=== PATIENT | female | born 1965 | race African-American/Black ===

== ENCOUNTER 2017-02-02 15:59 | Emergency (ER) ==
[2017-02-02 16:08] VITALS: BP 127/86; TEMP 98.3; BMI 26.6
[2017-02-02] MEDS ORDERED: TORADOL IM STA (16:19)
[2017-02-02] MEDS ORDERED: DILAUDID 1 MG/ML SYRINGE IM STA (16:19)
--- NOTE | 2017-02-02 16:22 | ED.PDOC ---
General ED Provider: Dr. KAYLA SPENCER Chief Complaint: Back Pain Stated Complaint: low back pain Time Seen by Physician: 16:00 (low back pain radiating to both legs may wood present at all times ) Mode of Arrival: Walk-In Information Source: Patient, Family Exam Limitations: No limitations Primary Care Provider: JO DEAN Nursing and Triage Documentation Reviewed and Agree: Yes Musculoskeletal Complaint Exam - Back Pain Complaint/Exam Mechanism of Injury: Reports: No known trauma Onset/Duration: 2 days Symptoms Are: Still present Timing: Intermittent Episodes Lasting: Days Initial Severity: Moderate Current Severity: Moderate Character: Reports: Aching, Throbbing, Spasmodic Aggravating: Reports: Movements, Lifting, Bending, Walking Alleviating: Reports: Rest, Position Associated Signs and Symptoms: Reports: Flank pain (righ /left). Denies: Swelling, Redness, Bruising, Fever, Weakness, Numbness, Tingling, Abdominal pain , Bladder incontinence, Bowel incontinence, Weight loss, Pain with weight bearing Related History: Reports: Similar episode TAD Risk Factors: Reports: None AAA Risk Factors: Reports: None Cauda Equina Risk Factors: Reports: None Related Surgical History: Reports: None Focal Tenderness: No Paraspinal Muscle Tenderness: No Paraspinal Muscle Spasm: Yes Scoliosis: No Lordosis: No Kyphosis: No SLR Test: Right Negative, Left Negative Hip Motion Testing Pain: Right Negative, Left Negative Focal Weakness: Present: None Focal Sensory Loss: Present: None Gait: Present: Normal Differential Diagnoses: Strain, Sprain Review of Systems - Review Of Systems Constitutional: Reports: No symptoms Eyes: Reports: No symptoms Ears, Nose, Mouth, Throat: Reports: No symptoms Respiratory: Reports: No symptoms Cardiac: Reports: No symptoms GI: Reports: No symptoms : Reports: No symptoms Musculoskeletal: Reports: Back pain Skin: Reports: No symptoms Neurological: Reports: No symptoms Endocrine: Reports: No symptoms Hematologic/Lymphatic: Reports: No symptoms All Other Systems: Reviewed and Negative Past Medical History - Past Medical History Previously Healthy: Yes Endocrine: Reports: None Cardiovascular: Reports: None Respiratory: Reports: None Hematological: Reports: None Gastrointestinal: Reports: None Genitourinary: Reports: None Neuro/Psych: Reports: None Musculoskeletal: Reports: None Cancer: Reports: None Last Menstrual Period: hysterectomy - Surgical History General Surgical History: Reports: Hysterectomy, , Cholecystectomy - Family History Family History: Reports: Unknown - Social History Smoking Status: Current every day smoker, Heavy tobacco smoker Hx Substance Use: No Alcohol Screening: None Physical Exam - Physical Exam Appearance: Well-appearing, No pain distress, Well-nourished Eyes: MYRNA, EOMI, Conjunctiva clear ENT: Ears normal, Nose normal, Oropharynx normal Respiratory: Airway patent, Breath sounds clear, Breath sounds equal, Respirations nonlabored Cardiovascular: RRR, Pulses normal, No rub, No murmur GI/: Soft, Nontender, No masses, Bowel sounds normal, No Organomegaly Musculoskeletal: Normal strength, ROM intact, No edema, No calf tenderness Skin: Warm, Dry, Normal color Neurological: Sensation intact, Motor intact, Reflexes intact, Cranial nerves intact, Alert, Oriented Psychiatric: Affect appropriate, Mood appropriate Critical Care Note - Critical Care Note Total Time (mins): 0 Course - Course Orders, Labs, Meds: Orders Category Date Time Status Hydromorphone HCl [Dilaudid 1 mg/ml Syringe] MEDS 02/02/17 16:19 Stat 0.5 mg IM ONCE STA Ketorolac Tromethamine [Toradol] MEDS 02/02/17 16:19 Stat 60 mg IM ONCE STA Medications Generic Name Dose Route Start Last Admin Trade Name Freq PRN Reason Stop Dose Admin Hydromorphone HCl 0.5 mg 02/02/17 16:19 Dilaudid 1 Mg/Ml Syringe IM 02/02/17 16:20 ONCE STA Ketorolac Tromethamine 60 mg 02/02/17 16:19 Toradol IM 02/02/17 16:20 ONCE STA Vital Signs: Temp Pulse Resp BP Pulse Ox 02/02/17 15:59 98.3 F 99 H 20 127/86 95 Departure - Departure Time of Disposition: 05:10 Disposition: HOME SELF-CARE Discharge Problem: Low back pain Qualifiers: Chronicity: unspecified Back pain laterality: unspecified Instructions: Acute Low Back Pain (ED) Condition: Good Pt referred to PMD for follow-up: No Additional Instructions: Please call your Family Physician as soon as possible to schedule a follow-up appointment. Allergies/Adverse Reactions: Allergies No Known Allergies Allergy (Verified 02/02/17 16:07) Home Medications: Ambulatory Orders Aspirin [Aspirin EC] 81 mg PO DAILYWM PRN 12/22/15 Metoprolol Tartrate [Lopressor] 25 mg PO DAILY 05/23/16
[2017-02-02 16:39] LABS: BILIRUBIN,URINE Negative (NEGATIVE); KETONES,URINE Negative (NEGATIVE); LEUKOCYTE ESTERASE ,URINE Negative (NEGATIVE); NITRITE,URINE Negative (NEGATIVE); PH,URINE 6.5 (5-9); PROTEIN,URINE Trace (NEGATIVE); URINE, BLOOD Trace-intact (NEGATIVE)
[2017-02-02 16:40] LABS: ADD URINE MICROSCOPIC YES
== END 2017-02-02 17:15 | disposition home or self-care (01) ==
LOC: ED 15:59
DX: M54.5 Low back pain (principal); F17.210 Nicotine dependence, cigarettes, uncomplicated
CPT/HCPCS: 81001; 96372; 99283

== ENCOUNTER 2018-05-09 12:34 | Emergency (ER) ==
[2018-05-09 12:41] VITALS: BP 130/84; TEMP 97.9; BMI 31.3
[2018-05-09] MEDS ORDERED: ZOFRAN 4 MG/2 ML IM STA (13:31)
[2018-05-09] MEDS ORDERED: MORPHINE 4 MG/ML SYRINGE IM STA (13:31)
--- NOTE | 2018-05-09 14:10 | CT ---
EXAM: CT abdomen pelvis without contrast HISTORY: Lower abdominal pain COMPARISON: CT 08/04/2015 TECHNIQUE: Serial axial images of the abdomen pelvis were performed from the lung bases through the inferior pelvis without contrast. Axial scans acquired at 3 mm slice thicknesses. MPR coronal and s agittal sequence completed FINDINGS: Abdomen. Images of the lower thorax show no pulmonary infiltrate. There is no intrperitoneal free air. The l iver, spleen, pancreas, adrenal glands are unremarkable. There is no renal calculus. No obstruction of either kidney or ureter is seen. There are changes of previous cholecystectomy. No biliary ducta l dilatation is seen. Aorta normal caliber. No abdominal adenopathy within limitations of a noncontr ast CT. There is no ascites. There is no small bowel obstruction or bowel wall thickening. The appe ndix is normal. There is no inflammation large bowel Pelvis. Previous hysterectomy. Bladder nondistended. There are multiple central and right adnexal cysts larg est complex cyst posteriorly slightly right of midline measures 3.5 x 2.8 x 3.5 cm with additional ce ntral pelvic cyst as large as 3.0 x 2.3 x 3.3 cm. There is no free fluid in the pelvis. No hernia. Skeletal structures. Bones are free of osteolytic or blastic lesions. Minimal degenerate disc disea se L4-L5 level. IMPRESSION: 1. No bowel or urinary obstruction. Appendix appears normal. 2. Solid organs to include liver, spleen, and pancreas show no acute findings. 3. Previous cholecystectomy. No biliary duct dilatation. 4. Prior hysterectomy. Multiple pelvic cysts. Cyst are seen measuring 3.5 x 2.8 x 3.5 cm and 3.0 x 2.3 x 3.3 cm. Consider follow-up pelvic ultrasound to further assess.
--- NOTE | 2018-05-09 14:26 | ED.PDOC ---
General ED Provider: Dr. KAYLA SPENCER Chief Complaint: Abdominal Pain Stated Complaint: lower abdominal pain Time Seen by Physician: 12:40 (joselito was present at all times ) Mode of Arrival: Walk-In Information Source: Patient Exam Limitations: No limitations Primary Care Provider: JO DEAN Nursing and Triage Documentation Reviewed and Agree: Yes Does patient meet sepsis criteria?: No System Inflammatory Response Syndrome: Not Applicable Sepsis Protocol: For patient's 13 years and over: Temp is 96.8 and below OR 101 and greater Pulse >90 BPM Resp >20/minute Acutely Altered Mental Status Are patient's symptoms suggestive of a new infection, such as: -Pneumonia -Skin, Soft Tissue -Endocarditis -UTI -Bone, Joint Infection -Implantable Device -Acute Abdominal Infection -Wound Infection -Meningitis -Blood Stream Catheter Infection -Unknown GI Complaint Exam - Abdominal Pain Complaint/Exam Onset: Gradual Duration: 1 day Symptoms Are: Still present Timing: Constant Initial Severity: Mild Current Severity: Mild Location of Pain: RLQ, LLQ Radiates To: Denies: Chest, Back, Flank, LLQ, RLQ, Inguinal Character: Reports: Dull Aggravating: Reports: None Alleviating: Reports: None Associated Signs and Symptoms: Denies: Diaphoresis, Fever, Cough, Chest pain, Dizziness, Back pain, Constipation, Blood in stool, Dysuria, Urinary frequency, Decreased urine output, Decreased appetite, Vaginal bleeding, Vaginal discharge , Nausea, Vomiting, Diarrhea, Sore throat, Decreased activity Related History: Reports: Similar episode AAA Risk Factors: Reports: None Cardiac Risk Factors: Reports: None Ectopic Risk Factors: Reports: None Ovarian Torsion Risk Factors: Reports: None Surgical Obstruction Risk Factors: Reports: None Related Surgical History: Reports: None Patient Rh Status: Unknown Review of Systems - Review Of Systems Constitutional: Reports: No symptoms Eyes: Reports: No symptoms Ears, Nose, Mouth, Throat: Reports: No symptoms Respiratory: Reports: No symptoms Cardiac: Reports: No symptoms GI: Reports: Abdominal pain : Reports: No symptoms Musculoskeletal: Reports: No symptoms Skin: Reports: No symptoms Neurological: Reports: No symptoms Endocrine: Reports: No symptoms Hematologic/Lymphatic: Reports: No symptoms All Other Systems: Reviewed and Negative Past Medical History - Past Medical History Previously Healthy: Yes Endocrine: Reports: None Cardiovascular: Reports: None Respiratory: Reports: None Hematological: Reports: None Gastrointestinal: Reports: None Genitourinary: Reports: None Neuro/Psych: Reports: None Musculoskeletal: Reports: None Cancer: Reports: None Last Menstrual Period: PARTIAL HYSTERECTOMY - Surgical History General Surgical History: Reports: Hysterectomy, , Cholecystectomy - Family History Family History: Reports: Unknown - Social History Smoking Status: Current every day smoker, Heavy tobacco smoker Hx Substance Use: No Alcohol Screening: None - Immunizations Tetanus Shot up to Date: No Physical Exam - Physical Exam Appearance: Well-appearing, No pain distress, Well-nourished Eyes: MYRNA, EOMI, Conjunctiva clear ENT: Ears normal, Nose normal, Oropharynx normal Respiratory: Airway patent, Breath sounds clear, Breath sounds equal, Respirations nonlabored Cardiovascular: RRR, Pulses normal, No rub, No murmur GI/: Soft, Nontender, No masses, Bowel sounds normal, No Organomegaly Musculoskeletal: Normal strength, ROM intact, No edema, No calf tenderness Skin: Warm, Dry, Normal color Neurological: Sensation intact, Motor intact, Reflexes intact, Cranial nerves intact, Alert, Oriented Psychiatric: Affect appropriate, Mood appropriate Interpretation - Radiology Interpretation Radiology Interpretation By: Radiologist Radiology Results: No acute changes Critical Care Note - Critical Care Note Total Time (mins): 0 Course - Course Hematology/Chemistry: 05/09/18 13:43 Orders, Labs, Meds: Lab Review 05/09/18 05/09/18 13:43 13:43 WBC 11.71 H RBC 4.21 Hgb 13.3 Hct 39.1 MCV 92.9 MCH 31.6 H MCHC 34.0 RDW Coeff of Azeem 13.1 Plt Count 300 Immature Gran % (Auto) 0.3 Neut % (Auto) 73.4 Lymph % (Auto) 19.6 [place] % (Auto) 5.8 Eos % (Auto) 0.7 Baso % (Auto) 0.2 Immature Gran # (Auto) 0.0 Neut # (Auto) 8.6 H Lymph # (Auto) 2.3 [place] # (Auto) 0.7 Eos # (Auto) 0.1 Baso # (Auto) 0.0 Urine Color Yellow Urine Clarity Slightly Urine pH 5.5 Ur Specific [place] 1.025 Urine Protein Negative Urine Glucose (UA) Negative Urine Ketones Negative Urine Blood 1+ Urine Nitrite Negative Urine Bilirubin Negative Urine Urobilinogen 0.2 Ur Leukocyte Esterase 3+ Urine Microscopic RBC 5-10 Urine Microscopic WBC 30-50 Ur Squamous Epith Cells 2-5 Urine Bacteria 1+ Orders Category Date Time Status AMYLASE Stat LAB 05/09/18 13:30 Ordered CBC W/ AUTO DIFF Stat LAB 05/09/18 13:30 Ordered COMPREHENSIVE METABOLIC PANEL Stat LAB 05/09/18 13:30 Ordered LIPASE Stat LAB 05/09/18 13:30 Ordered URINALYSIS C & S IF INDICATED Stat LAB 05/09/18 13:30 Uncollected URINE CULTURE Stat LAB 05/09/18 13:43 Received Morphine Sulfate [Morphine 4 mg/ml Syringe] MEDS 05/09/18 13:31 Stat 4 mg IM ONCE STA Ondansetron HCl/Pf [Zofran 4 mg/2 ml] MEDS 05/09/18 13:31 Stat 4 mg IM ONCE STA CT ABDOMEN/PELVIS WO CONTRAST Stat RADS 05/09/18 13:30 Ordered Medications Discontinued Medications Generic Name Dose Route Start Last Admin Trade Name Freq PRN Reason Stop Dose Admin Morphine Sulfate 4 mg 05/09/18 13:31 05/09/18 13:43 Morphine 4 Mg/Ml Syringe IM 05/09/18 13:32 4 mg ONCE STA Administration Ondansetron HCl 4 mg 05/09/18 13:31 05/09/18 13:43 Zofran 4 Mg/2 Ml IM 05/09/18 13:32 4 mg ONCE STA Administration Vital Signs: Temp Pulse Resp BP Pulse Ox 05/09/18 12:37 97.9 F 93 H 16 130/84 98 Departure - Departure Time of Disposition: 14:25 Disposition: HOME SELF-CARE Discharge Problem: Abdominal pain Ovarian cyst Qualifiers: Laterality: unspecified laterality Qualified Code(s): N83.209 - Unspecified ovarian cyst, unspecified side Instructions: Ovarian Cyst (ED) Condition: Good Pt referred to PMD for follow-up: Yes IPMP verified?: No Additional Instructions: Please call your Family Physician as soon as possible to schedule a follow-up appointment. Allergies/Adverse Reactions: Allergies No Known Allergies Allergy (Verified 05/09/18 12:41) Home Medications: Ambulatory Orders Aspirin [Aspirin EC] 81 mg PO DAILYWM PRN 12/22/15 Metoprolol Tartrate [Lopressor] 25 mg PO DAILY 05/23/16
[2018-05-09] MEDS ORDERED: ROCEPHIN IM STA (14:27)
[2018-05-09] MEDS ORDERED: LIDOCAINE HCL 1% SDV IM STA (14:27)
== END 2018-05-09 15:15 | disposition home or self-care (01) ==
LOC: ED 12:34
DX: N83.209 Unspecified ovarian cyst, unspecified side (principal); N39.0 Urinary tract infection, site not specified; R10.30 Lower abdominal pain, unspecified; F17.210 Nicotine dependence, cigarettes, uncomplicated
CPT/HCPCS: 36415; 80053; 81001; 82150; 83690; 85025; 87086; 96372; 99284

== ENCOUNTER 2024-11-18 12:45 | Observation (INO) ==
--- NOTE | 2024-11-18 13:26 | ED.PDOC ---
General ED Provider: Dr. IMELDA LONDON MD Chief Complaint: Bite Stated Complaint: 59 yo BF breaking up a dog fight when her pitbull got out of his pen. Was fighting for 30 minutes and she was bitten on the L hand. 3 superficial wound with the worse one on the base of L thumb. No numbness. She also broke part of her nail on the R middle finger during the process. Thinks her tetanus was 7 years ago. Was concerned about MRSA as she almost from it. Was seen about 2 weeks ago for some other complaints and had elevated BP in the ER after initial BP was a little low. Seen in 2020 and placed on Metoprolol then. Said she didn't have any HTN till this last ER visit BP been variable and occ 120/80. Still with some numbness of the abdomen and lower extremity weakness, started about 3 weeks ago. No incontinence Time Seen by Provider: 11/18/24 12:59 Mode of Arrival: Walk-In Information Source: Patient Exam Limitations: No limitations Referred to ED by: Other (self) Nursing and Triage Documentation Reviewed and Agree: Yes Does Patient Take Opioids?: No What is Opioid Naive?: *Opioid Naive implies the patient is not already taking opioids or not chronically receiving opioids on a daily basis. *PRN dosing is not "usually" associated with tolerance. *Patients are at higher risk of over-sedation and aspiration. What is Opioid Tolerant?: *Opioid Tolerance implies less than the expected response to an opioid. *Acquired tolerance is defined by the patient taking 60mg of oral morphine daily (or equianalgesic dose of another opioid) for 1 week or more. *Often associated with chronic pain. *May take more than usual dose to achieve desired pain control. Review of Systems Review Of Systems Constitutional: Reports No symptoms Eyes: Reports No symptoms Ears, Nose, Mouth, Throat: Reports No symptoms Respiratory: Reports No symptoms Cardiac: Reports No symptoms GI: Reports No symptoms Musculoskeletal: Denies Back pain Skin: Reports Other (minor bite wounds L hand) Neurological: Reports No symptoms PFSH Social History Smoking and tobacco status: Current every day smoker Female Reproductive History Menstrual Hx Hysterectomy: No Hx Tubal Ligation: No Physical Exam Physical Exam Appearance: Reports Well-appearing and Well-nourished Pain Distress: Mild Eyes: Reports EOMI Respiratory: Reports Airway patent and Respirations nonlabored Cardiovascular: Reports Pulses normal Musculoskeletal: Reports Other (L hand with 3 superficial wound, all 1/2 cm or less with the wound at base of L thumb thru the skin. Normal thumb extension. Normal sensation. Smaller wound on the velasco aspect barely broke the epidermis. L middle finger with avulsed distal nail plate with most of the nail intact. ) Skin: Reports Warm, Dry and Normal color Neurological: Reports Sensation intact and Motor intact Psychiatric: Reports Affect appropriate and Mood appropriate Course Course 11/18/24 13:46 Orders, Labs, Meds: Lab Review 11/18/24 11/18/24 13:46 17:44 WBC 10.32 H RBC 4.45 Hgb 13.7 Hct 42.8 MCV 96.2 MCH 30.8 MCHC 32.0 RDW Coeff of Azeem 13.1 Plt Count 319 Immature Gran % (Auto) 0.3 Neut % (Auto) 60.4 Lymph % (Auto) 31.0 [place] % (Auto) 6.4 Eos % (Auto) 1.5 Baso % (Auto) 0.4 Neut # (Auto) 6.2 Lymph # (Auto) 3.2 [place] # (Auto) 0.7 Eos # (Auto) 0.2 Baso # (Auto) 0.0 Immature Gran # (Auto) 0.0 ESR 13 Total Creatine Kinase 803.6 H 1160.4 H CK-MB (CK-2) 2.700 H Pending CK-MB (CK-2) % 0.3300 Pending Orders Category Date Time Status Saline Lock [ED IV/MEDIPORT/POWERPORT] .ONCE EMERGENCY 11/18/24 14:59 Active Wound care [ED WOUND CARE] .ONCE EMERGENCY 11/18/24 13:18 Active CBC W/ AUTO DIFF Stat LAB 11/18/24 13:46 Completed CPK [CREATINE KINASE] Stat LAB 11/18/24 13:46 Completed CPK [CREATINE KINASE] Stat LAB 11/18/24 17:44 Results ESR Stat LAB 11/18/24 13:46 Completed 0.9 % Sodium Chloride [Saline Flush] Meds 11/18/24 14:59 Active 1 syr IVF PRN PRN Amoxicillin/Potassium Clav [Augmentin 875-125 mg Tab] Meds 11/18/24 13:18 Discontinued 1 tab PO ONCE ONE Diphth,Pertuss(Acell),Tet Vac [Boostrix] Meds 11/18/24 13:18 Discontinued 0.5 ml IM .ONCE ONE Hydralazine HCl Meds 11/18/24 14:59 Discontinued 10 mg IVP ONCE ONE Morphine Sulfate [Morphine 4 mg/ml Syringe] Meds 11/18/24 15:06 Discontinued 4 mg IVP ONCE ONE Sodium Chloride 0.9% [Sodium Chloride] 500 ml Meds 11/18/24 14:59 Discontinued IV 250 mls/hr CT LUMBAR SPINE W/O CONTRAST Stat RADS 11/18/24 13:[address] THORACIC SPINE W/O CONTRAST Stat RADS 11/18/24 13:34 Completed Medications Generic Name Dose Route Start Last Admin Trade Name Freq PRN Reason Stop Dose Admin Sodium Chloride 1 syr 11/18/24 14:59 0.9% Sodium Chloride 10 Ml Disp.Syrin IVF PRN PRN To flush IV Discontinued Medications Generic Name Dose Route Start Last Admin Trade Name Freq PRN Reason Stop Dose Admin Amoxicillin/Clavulanate Potassium 1 tab 11/18/24 13:18 11/18/24 13:37 Amoxicillin/Potassium Clav 875/125 Mg Tablet PO 11/18/24 13:19 1 tab ONCE ONE Administration Diphtheria/Pertussis/Tetanus Vacc 0.5 ml 11/18/24 13:18 11/18/24 13:38 Diphth,Pertuss(Acell),Tet Vac 0.5 Ml Disp.Syrin IM 11/18/24 13:19 0.5 ml .ONCE ONE Administration Hydralazine HCl 10 mg 11/18/24 14:59 11/18/24 15:35 Hydralazine Hcl 20 Mg/Ml Sdv IVP 11/18/24 15:00 10 mg ONCE ONE Administration Sodium Chloride 500 mls @ 250 mls/hr 11/18/24 14:59 11/18/24 17:47 Sodium Chloride IV 11/18/24 16:58 Infused .Q2H ONE Infusion Morphine Sulfate 4 mg 11/18/24 15:06 11/18/24 15:35 Morphine Sulfate 4 Mg/Ml Syringe IVP 11/18/24 15:07 4 mg ONCE ONE Administration Vital Signs: Temp Pulse Resp BP Pulse Ox 11/18/24 14:21 193/119 H 11/18/24 12:56 97.3 F L 94 18 204/128 H 98 Discharge Plan Discharge Patient Disposition: PLACED OBSERVATION Discharge Problem: Dog bite, Spinal stenosis of lumbar region at multiple levels, Elevated CPK Prescriptions: No Action metoprolol succinate 50 mg capsule,sprinkle,ER 24hr 50 mg PO DAILY Estroven 155 mg capsule 1 cap PO DAILY Did you review [place] [employer]ATOR for ALL controlled substances?: Not Applicable ED Provider: IMELDA LONDON Condition: Fair Physician Progress Note: CPK noted and started IV fluid at 250cc/hr. repeat CPK has increased to 1160. Discussed with patient and hospitalist about overnight admission for hydration
[2024-11-18] MEDS: AUGMENTIN 875-125 MG TAB PO ONE (13:37)
[2024-11-18] MEDS: BOOSTRIX IM ONE (13:38)
[2024-11-18 13:51] LABS: BASOPHILS % (AUTO) 0.4 % (0.0-3.0); EOSINOPHILS # (AUTO) 0.2 K/ul (0.0-0.7); EOSINOPHILS % (AUTO) 1.5 % (0.0-7.0); HEMATOCRIT 42.8 % (37.0-47.0); HEMOGLOBIN 13.7 g/dl (12.0-16.0); IMMATURE GRANULOCYTE % (AUTO) 0.3 % (0.0-5.0); LYMPHOCYTES # (AUTO) 3.2 K/uL (0.60-3.4); MEAN CORPUSCULAR HEMOGLOBIN 30.8 pg (27.0-31.0); MEAN CORPUSCULAR VOLUME 96.2 fl (81.0-99.0); MONOCYTES # (AUTO) 0.7 K/uL (0.4-2.0); MONOCYTES % (AUTO) 6.4 (0-10); NEUTROPHILS # (AUTO) 6.2 K/ul (2.0-6.9); NEUTROPHILS % (AUTO) 60.4 % (42.2-75.2); PLATELET COUNT 319 10^3/uL (140-440); RDW COEFFICIENT OF VARIATION 13.1 % (11.6-14.8); RED BLOOD COUNT 4.45 10^6/ul (4.20-5.40); WHITE BLOOD COUNT 10.32 K/ul (4.6-10.2)
[2024-11-18 14:16] LABS: CREATINE KINASE 803.6 U/L (30-135)
[2024-11-18 14:32] LABS: CREATINE KINASE MB 2.7 ng/ml (0.0-2.38)
--- NOTE | 2024-11-18 14:33 | CT ---
EXAMINATION: CT THORACIC SPINE WITHOUT CONTRAST HISTORY: Back pain. TECHNIQUE: CT of the thoracic spine was performed according to standard protocol without intravenous contrast. Sagittal and coronal reformatted images were obtained using the data from the axial images. Contrast Dose: None. CT Dose Reduction Techniques Performed: Yes. COMPARISON: None. FINDINGS: Segmentation: 12 rib-bearing thoracic vertebral bodies. Alignment: Anatomic. Bones: No fracture. No lytic or blastic lesion. Disc Spaces: Normal heights. Soft Tissues: Within normal limits. Limited chest and abdomen: The visualized portions of the lungs are clear. The thoracic aorta is not dilated. The visualized portions of the adrenals and kidneys are normal. Degenerative changes: No significant facet arthropathy. There is mild degenerative disc disease in th e mid thoracic spine with lateral osteophyte formation. No significant spinal canal stenosis. IMPRESSION: 1. No fracture or subluxation All CT scans are performed using dose optimization techniques as appropriate to the performed exam an d include at least one of the following: Automated exposure control, adjustment of the mA and/or kV according t o size, and the use of iterative reconstruction technique.
--- NOTE | 2024-11-18 14:35 | CT ---
EXAMINATION: CT LUMBAR SPINE WITHOUT CONTRAST HISTORY: Lower extremity weakness. TECHNIQUE: Computed tomography (CT) of the lumbar spine was performed according to standard protocol without intravenous contrast. Contrast Dose: None. CT Dose Reduction Techniques Performed: Yes. COMPARISON: None. FINDINGS: There are 5 non-rib bearing lumbar type vertebrae, with partial sacralization of L5 on the left. The coronal images show mild scoliosis, convex to the left. [id number] degenerative changes of both sacroiliac joints. The sagittal images show normal curvature. Mild retrolisthesis of T12 on L1. Vertebral body heights are normal. Moderate disc height loss with vacuum phenomena and mild degenerat jensen endplate sclerosis at L4-5. Mild multilevel osteophytosis. [id number] multilevel bilateral facet arthropathy. No fractures or dislocations are identified. 2.2 cm cyst L1-2: Mild bilateral facet arthropathy. No spinal canal stenosis or neuroforaminal narrowing. L2-3: Mild bilateral facet arthropathy. No spinal canal stenosis or neuroforaminal narrowing. L3-4: Mild disc protrusion and mild bilateral facet arthropathy. Mild spinal canal stenosis. Mild rig ht neuroforaminal narrowing. L4-5: Disc bulge with central disc protrusion and mild bilateral facet arthropathy. Moderate to sever e spinal canal stenosis. Moderate bilateral neuroforaminal narrowing. L5-S1: Left posterolateral bony spurring, and bilateral facet arthropathy, moderate on the left and m ild on the right. No spinal canal stenosis. Mild left neuroforaminal narrowing. IMPRESSION: 1. Mild scoliosis, convex to the left. 2. Mild retrolisthesis of T12 on L1. 3. Multilevel degenerative changes as described. 4. At L3-4, mild spinal canal stenosis and mild right neural foraminal narrowing. 5. At L4-5, [id number] spinal canal stenosis, and moderate bilateral neural foraminal narrowi ng. 6. At L5-S1, mild left neuroforaminal narrowing. All CT scans are performed using dose optimization techniques as appropriate to the performed exam an d include at least one of the following: Automated exposure control, adjustment of the mA and/or kV according t o size, and the use of iterative reconstruction technique.
[2024-11-18 14:50] LABS: ERYTHROCYTE SEDIMENTATION RATE 13 mm/hr (0-20)
[2024-11-18] MEDS: SODIUM CHLORIDE 500 ML IV ONE (15:32)
[2024-11-18] MEDS: HYDRALAZINE HCL IVP ONE (15:35)
[2024-11-18] MEDS: MORPHINE 4 MG/ML SYRINGE IVP ONE (15:35)
[2024-11-18 18:41] LABS: CREATINE KINASE 1160.4 U/L (30-135)
[2024-11-18 18:56] LABS: CREATINE KINASE MB 2.99 ng/ml (0.0-2.38)
[2024-11-18 19:59] LABS: SARS COV-2 RNA RAPID NAAT NEGATIVE (NEGATIVE)
[2024-11-18] MEDS: SODIUM CHLORIDE 1,000 ML IV SCH (20:38)
[2024-11-18] MEDS: AUGMENTIN 875-125 MG TAB PO SCH (21:33)
[2024-11-18] MEDS: NORCO 7.5-325 PO PRN (21:35)
[2024-11-18] MEDS: NORVASC PO SCH (22:51)
[2024-11-18 22:56] VITALS: BMI 37.7
[2024-11-19] MEDS: MELATONIN PO PRN (01:02)
[2024-11-19 06:14] LABS: ALANINE AMINOTRANSFERASE 19.7 U/L (0-35); ALBUMIN 3.54 g/dL (3.5-5.0); ALKALINE PHOSPHATASE 96.2 U/L (38-126); ASPARTATE AMINO TRANSFERASE 49.8 U/L (14-36); BILIRUBIN,TOTAL 0.75 mg/dL (0.2-1.3); BLOOD UREA NITROGEN 9.7 mg/dL (7-17); CALCIUM 8.79 mg/dL (8.4-10.2); CARBON DIOXIDE 25.7 mmol/L (22-30.0); CHLORIDE 107.3 mmol/L (98-107); CREATINE KINASE 1547.6 U/L (30-135); CREATININE 0.8 mg/dL (0.60-1.30); POTASSIUM 3.77 mmol/L (3.5-5.1); TOTAL PROTEIN 6.37 g/dL (6.3-8.2)
[2024-11-19 06:18] LABS: BASOPHILS % (AUTO) 0.2 % (0.0-3.0); EOSINOPHILS # (AUTO) 0.2 K/ul (0.0-0.7); EOSINOPHILS % (AUTO) 1.7 % (0.0-7.0); HEMOGLOBIN 11.9 g/dl (12.0-16.0); IMMATURE GRANULOCYTE % (AUTO) 0.1 % (0.0-5.0); LYMPHOCYTES # (AUTO) 3.6 K/uL (0.60-3.4); LYMPHOCYTES % (AUTO) 37.9 (10.0-50.0); MEAN CORPUSCULAR HEMOGLOBIN 30.8 pg (27.0-31.0); MEAN CORPUSCULAR HGB CONC 32.2 (31.8-35.4); MEAN CORPUSCULAR VOLUME 95.9 fl (81.0-99.0); MONOCYTES # (AUTO) 0.6 K/uL (0.4-2.0); MONOCYTES % (AUTO) 6.5 (0-10); NEUTROPHILS # (AUTO) 5.1 K/ul (2.0-6.9); NEUTROPHILS % (AUTO) 53.6 % (42.2-75.2); PLATELET COUNT 284 10^3/uL (140-440); RDW COEFFICIENT OF VARIATION 13.3 % (11.6-14.8); RED BLOOD COUNT 3.86 10^6/ul (4.20-5.40); WHITE BLOOD COUNT 9.52 K/ul (4.6-10.2)
[2024-11-19 06:29] LABS: CREATINE KINASE MB 2.95 ng/ml (0.0-2.38)
[2024-11-19] MEDS ORDERED: TOPROL XL ONE (08:13)
[2024-11-19] MEDS: TOPROL XL PO SCH (08:13)
[2024-11-19] MEDS: LOVENOX SUBCUT SCH (08:13)
[2024-11-19] MEDS: LACTATED RINGERS 1,000 ML IV SCH (09:50)
[2024-11-19 14:35] LABS: CREATINE KINASE 2223.8 U/L (30-135)
[2024-11-19 14:52] LABS: CREATINE KINASE MB 3.24 ng/ml (0.0-2.38)
--- NOTE | 2024-11-19 15:15 | PCM ---
Date of Service Date Seen by Provider: 11/19/24 Time Seen by Provider: 08:40 Admit Day/Time Admission Date: 11/18/24 Admission Time: 18:54 Reason for Admission Chief Complaint: DOG BITE, SPINAL STENOSIS, ELEVATED CPK Hospital Provider Hospital Provider: AZUL RUIZ PA-C, [facility] History of Present Illness History of Present Illness: Patient is a 59-year-old female with past medical history of hypertension who presented to the ER with bites on her hands from breaking up a dog fight. She has a couple small puncture wounds and scratches otherwise nothing significant. However she was concerned due to having history of MRSA in the past that she wanted to be evaluated. She also discussed that she was having some numbness and weak weakness of her lower extremities and numbness in her anterior abdomen area. This has been progressing for the last month. She was evaluated in the ER recently and had a negative CT abdomen and pelvis and labs. In the ER this visit she had a CT of thoracic spine which was unremarkable and then of lumbar spine which is showing different levels of spinal stenosis. A CPK was checked due to her symptoms which was elevated. This was thought to be due to her spending about 15 to 20 minutes breaking up the dog fight. Her initial CPK was in the 800s and then increased to 1100s despite fluid resuscitation. She was admitted to [facility]. Today patient is continue to be on fluids and CPK still trending upwards. Patient denies any saddle anesthesia or urinary or bowel incontinence. Her complaint of numbness crosses multiple dermatomes. Case Discussed With Case Discussed With: Patient's case was discussed with the ER Physicians, Dr. Chao. 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 - Other specified noninfective disorders of lymphatic vessels and lymph nodes (ICD-10) Tachycardia R00.0 - Tachycardia, unspecified (ICD-10) MRSA (methicillin resistant Staphylococcus aureus) A49.02 - Methicillin resistant Staphylococcus aureus infection, unspecified site (ICD-10) Anemia D64.9 - Anemia, unspecified (ICD-10) Hyperlipemia E78.5 - Hyperlipidemia, unspecified (ICD-10) Surgical History History of removal of both ovaries Z90.722 - Acquired absence of ovaries, bilateral (ICD-10) History of cholecystectomy Z90.49 - Acquired absence of other specified parts of digestive tract (ICD- 10) History of partial hysterectomy 2010 Z90.711 - Acquired absence of uterus with remaining cervical stump (ICD-10) History of Z98.891 - History of uterine scar from previous surgery (ICD-10) Family History Other Hypertension Social History Smoking and tobacco status: Current every day smoker Tobacco type: cigarettes Allergies Allergies Allergy/AdvReac Type Severity Reaction Status Date / Time No Known Allergies Allergy Verified 11/18/24 12:55 Current Medications Home Medications Hydrocodone Bitart/Acetaminophen (Hydrocodone Bit/Acetaminophen 7.5/325 Mg Tablet) 1 tab PO 4XD PRN PRN Reason: Severe Pain Last Admin: 11/19/24 09:41 Dose: 1 tab Amlodipine Besylate (Amlodipine Besylate 5 Mg Tablet) 5 mg PO DAILY [facility] Last Admin: 11/19/24 08:13 Dose: 5 mg Amoxicillin/Clavulanate Potassium (Amoxicillin/Potassium Clav 875/125 Mg Tablet) 1 tab PO 2XD [facility] Stop: 11/24/24 21:01 Last Admin: 11/19/24 08:12 Dose: 1 tab Enoxaparin Sodium (Enoxaparin Sodium 40 Mg/0.4 Ml Syr) 40 mg SUBCUT DAILY [facility] Last Admin: 11/19/24 08:13 Dose: 40 mg Lactated Ringer's (Lactated Ringers) 1,000 mls @ 400 mls/hr IV .Q2H30M [facility] Last Admin: 11/19/24 14:55 Dose: 400 mls/hr Melatonin (Melatonin 3 Mg Tablet) 6 mg PO BEDTIME PRN PRN Reason: Insomnia Last Admin: 11/19/24 01:02 Dose: 6 mg Metoprolol Succinate (Metoprolol Succinate 50 Mg Tab.Er.24h) 50 mg PO DAILY [facility] Last Admin: 11/19/24 08:13 Dose: 50 mg Sodium Chloride (0.9% Sodium Chloride 10 Ml Disp.Syrin) 1 syr IVF PRN PRN PRN Reason: To flush IV metoprolol succinate 50 mg capsule sprinkle, ext. release 24 hr 50 mg PO DAILY 11/05/24 [History Confirmed 11/18/24] soy isoflavone-black cohosh root-magnolia bark 155 mg capsule (Estroven) 1 cap PO DAILY 11/05/24 [History Confirmed 11/18/24] Opioid Naive vs. Tolerant Does Patient Take Opioids?: No Is Patient Opioid Naive?: Yes What is Opioid Naive?: *Opioid Naive implies the patient is not already taking opioids or not chronically receiving opioids on a daily basis. *PRN dosing is not "usually" associated with tolerance. *Patients are at higher risk of over-sedation and aspiration. Is Patient Opioid Tolerant?: No What is Opioid Tolerant?: *Opioid Tolerance implies less than the expected response to an opioid. *Acquired tolerance is defined by the patient taking 60mg of oral morphine daily (or equianalgesic dose of another opioid) for 1 week or more. *Often associated with chronic pain. *May take more than usual dose to achieve desired pain control. Review of Systems Constitutional: Reports Weakness; Denies Fever Head: Reports Normocephalic and Atraumatic Cardiovascular: Denies Chest pain, Chest Pressure or Edema Respiratory: Denies Cough or Shortness of air Gastrointestinal: Denies Nausea, Vomiting, Diarrhea, Abdominal pain or Melena Genitourinary: Denies Dysuria or Frequency Dermatologic: Reports Skin Changes (+puncture wound and abrasions to hands ) Neurological: Reports Numbness and Weakness; Denies Syncope Physical examination Most Recent Vital Signs: Most Recent Vital Signs Temperature 97.2 F L 11/19/24 14:00 Temperature Source Temporal Artery Scan 11/19/24 14:00 Temperature Source Temporal Artery Scan 11/18/24 12:56 Pulse Rate 73 11/19/24 14:00 Respiratory Rate 18 11/19/24 14:00 Blood Pressure 153/91 H 11/19/24 14:00 Blood Pressure Mean 111 11/19/24 14:00 Blood Pressure Left Arm 154/98 11/18/24 22:37 Blood Pressure Location Right Arm 11/19/24 10:00 Blood Pressure Position Supine 11/19/24 10:00 O2 Sat by Pulse Oximetry 96 11/19/24 14:00 Oxygen Delivery Method Room Air 11/19/24 14:00 Height 5 ft 6 in 11/18/24 22:37 Weight 106 kg 11/18/24 22:37 Appearance: Positive Well-appearing, Well-nourished, No Apparent Distress and Alert and Oriented x3 Skin: Positive [place], Warm, Good Turgor and Good Color; Negative Rashes HEENT: Positive Normocephalic and Atraumatic Neck: Positive Supple and Midline Trachea Chest/Lungs: Positive Clear to Auscultation Bilaterally; Negative Rales, Rhonci or Wheezes Heart: Positive RRR GI/: Positive Soft, Nontender, Bowel Sounds Normal and No Distention Extremities: Negative Edema Neurological: Positive Cranial Nerves Intact, Alert, Oriented and Muscle Strength 5/5 in Upper and Lower Extremities Bilaterally Psychiatric: Positive Oriented x4, Appropriate Mood and Appropriate Affect Additional Findings: Pt able to stand and ambulate. Pt has bandaids on her hands where the dogs had scratched her. Labs This Visit Labs This Visit: Labs This Visit 11/18/24 11/18/24 11/18/24 13:46 17:44 19:32 WBC 10.32 H RBC 4.45 Hgb 13.7 Hct 42.8 MCV 96.2 MCH 30.8 MCHC 32.0 RDW Coeff of Azeem 13.1 Plt Count 319 Immature Gran % (Auto) 0.3 Neut % (Auto) 60.4 Lymph % (Auto) 31.0 [place] % (Auto) 6.4 Eos % (Auto) 1.5 Baso % (Auto) 0.4 Neut # (Auto) 6.2 Lymph # (Auto) 3.2 [place] # (Auto) 0.7 Eos # (Auto) 0.2 Baso # (Auto) 0.0 Immature Gran # (Auto) 0.0 ESR 13 Sodium Potassium Chloride Carbon Dioxide Anion Gap BUN Creatinine Estimated GFR (MDRD) BUN/Creatinine Ratio Glucose Calcium Total Bilirubin AST ALT Alkaline Phosphatase Total Creatine Kinase 803.6 H 1160.4 H CK-MB (CK-2) 2.700 H 2.990 H CK-MB (CK-2) % 0.3300 0.2500 Total Protein Albumin Globulin Albumin/Globulin Ratio SARS CoV-2 RNA Rapid VIDA Negative 11/19/24 11/19/24 05:11 13:52 WBC 9.52 RBC 3.86 L Hgb 11.9 L Hct 37.0 MCV 95.9 MCH 30.8 MCHC 32.2 RDW Coeff of Azeem 13.3 Plt Count 284 Immature Gran % (Auto) 0.1 Neut % (Auto) 53.6 Lymph % (Auto) 37.9 [place] % (Auto) 6.5 Eos % (Auto) 1.7 Baso % (Auto) 0.2 Neut # (Auto) 5.1 Lymph # (Auto) 3.6 H [place] # (Auto) 0.6 Eos # (Auto) 0.2 Baso # (Auto) 0.0 Immature Gran # (Auto) 0.0 ESR Sodium 137.0 Potassium 3.77 Chloride 107.3 H Carbon Dioxide 25.7 Anion Gap 7.77 BUN 9.7 Creatinine 0.80 Estimated GFR (MDRD) 90.00 BUN/Creatinine Ratio 12.12 Glucose 96.0 Calcium 8.79 Total Bilirubin 0.75 AST 49.8 H ALT 19.7 Alkaline Phosphatase 96.2 Total Creatine Kinase 1547.6 H 2223.8 H CK-MB (CK-2) 2.950 H 3.240 H CK-MB (CK-2) % 0.1900 0.1400 Total Protein 6.37 Albumin 3.54 Globulin 2.83 Albumin/Globulin Ratio 1.25 SARS CoV-2 RNA Rapid VIDA Imaging Imaging: EXAMINATION: CT THORACIC SPINE WITHOUT CONTRAST HISTORY: Back pain. TECHNIQUE: CT of the thoracic spine was performed according to standard protocol without intravenous contrast. Sagittal and coronal reformatted images were obtained using the data from the axial images. Contrast Dose: None. CT Dose Reduction Techniques Performed: Yes. COMPARISON: None. FINDINGS: Segmentation: 12 rib-bearing thoracic vertebral bodies. Alignment: Anatomic. Bones: No fracture. No lytic or blastic lesion. Disc Spaces: Normal heights. Soft Tissues: Within normal limits. Limited chest and abdomen: The visualized portions of the lungs are clear. The thoracic aorta is not dilated. The visualized portions of the adrenals and kidneys are normal. Degenerative changes: No significant facet arthropathy. There is mild degenerative disc disease in the mid thoracic spine with lateral osteophyte formation. No significant spinal canal stenosis. IMPRESSION: 1. No fracture or subluxation EXAMINATION: CT LUMBAR SPINE WITHOUT CONTRAST HISTORY: Lower extremity weakness. TECHNIQUE: Computed tomography (CT) of the lumbar spine was performed according to standard protocol without intravenous contrast. Contrast Dose: None. CT Dose Reduction Techniques Performed: Yes. COMPARISON: None. FINDINGS: There are 5 non-rib bearing lumbar type vertebrae, with partial sacralization of L5 on the left. The coronal images show mild scoliosis, convex to the left. [id number] degenerative changes of both sacroiliac joints. The sagittal images show normal curvature. Mild retrolisthesis of T12 on L1. Vertebral body heights are normal. Moderate disc height loss with vacuum phenomena and mild degenerative endplate sclerosis at L4-5. Mild multilevel osteophytosis. Oqbg-pt-nithbols multilevel bilateral facet arthropathy. No fractures or dislocations are identified. 2.2 cm cyst L1-2: Mild bilateral facet arthropathy. No spinal canal stenosis or neuroforaminal narrowing. L2-3: Mild bilateral facet arthropathy. No spinal canal stenosis or neuroforaminal narrowing. L3-4: Mild disc protrusion and mild bilateral facet arthropathy. Mild spinal canal stenosis. Mild right neuroforaminal narrowing. L4-5: Disc bulge with central disc protrusion and mild bilateral facet arthropathy. Moderate to severe spinal canal stenosis. Moderate bilateral neuroforaminal narrowing. L5-S1: Left posterolateral bony spurring, and bilateral facet arthropathy, moderate on the left and mild on the right. No spinal canal stenosis. Mild left neuroforaminal narrowing. IMPRESSION: 1. Mild scoliosis, convex to the left. 2. Mild retrolisthesis of T12 on L1. 3. Multilevel degenerative changes as described. 4. At L3-4, mild spinal canal stenosis and mild right neural foraminal narrowing. 5. At L4-5, zazhoram-pw-ukwdyj spinal canal stenosis, and moderate bilateral neural foraminal narrowing. 6. At L5-S1, mild left neuroforaminal narrowing. Review Statement Review Statement: I have independently reviewed and interpreted the labs/EKGs/imaging that were ordered by the ER provider. I have reviewed all outside records that are available currently in our EMR including imaging/notes/labs from previous visits. Plan Plan: 1. Acute Rhabdo, mild - Worsening. Continue LR at 400 ml/hr. Repeat CPK tomorrow morning. 2. Paresthesias of lower abd and extremities - The L4-5 mod to severe spinal canal stenosis could be accounting for her lower ext weakness and numbness, unsure if it correlates with lower abd numbness from a dermatome standpoint. However would likely benefit from an outpatient neurosurgery referral. No acute emergent findings on imaging and symptoms have been ongoing. 3. Dog bite - Cont augmentin. Received tdap in er. No concern for rabies. 4. Hypertension - Cont home meds. Added amlodipine due to elevated pressures. DVT Prophylaxis: Lovenox Time Spent: Greater than 80 minutes spent with patient, 50% of the time spent with this patient was devoted to counseling and coordination of care. [facility] minutes spent discussing advance care planning. Admit to: Obs Discussed Plan of Care with Dr. Ellen Restrepo. Medications Medication Orders: Medications Ordered Category Date Time Status 0.9 % Sodium Chloride [Saline Flush] Meds 11/18/24 14:59 Active 1 syr IVF PRN PRN Amlodipine Besylate [Norvasc] Meds 11/18/24 21:40 Active 5 mg PO DAILY Amoxicillin/Potassium Clav [Augmentin 875-125 mg Tab] Meds 11/18/24 21:00 Active 1 tab PO 2XD Enoxaparin Sodium [Lovenox] Meds 11/19/24 09:00 Active 40 mg SUBCUT DAILY Hydrocodone Bit/Acetaminophen [Lane 7.5-325] Meds 11/18/24 19:00 Active 1 tab PO 4XD PRN Melatonin Meds 11/18/24 23:21 Active 6 mg PO BEDTIME PRN Metoprolol Succinate [Toprol Xl] Meds 11/19/24 09:00 Active 50 mg PO DAILY Ringers Lactated Solution [Lactated Ringers] 1,000 ml Meds 11/19/24 08:30 Active IV 400 mls/hr
[2024-11-19] MEDS: TORADOL IVP ONE (16:13)
[2024-11-20 05:41] VITALS: RESP 16
[2024-11-20 05:46] LABS: BASOPHILS % (AUTO) 0.3 % (0.0-3.0); EOSINOPHILS # (AUTO) 0.1 K/ul (0.0-0.7); EOSINOPHILS % (AUTO) 1.6 % (0.0-7.0); HEMATOCRIT 35.1 % (37.0-47.0); HEMOGLOBIN 11.7 g/dl (12.0-16.0); IMMATURE GRANULOCYTE % (AUTO) 0.1 % (0.0-5.0); LYMPHOCYTES # (AUTO) 3.2 K/uL (0.60-3.4); LYMPHOCYTES % (AUTO) 42.1 (10.0-50.0); MEAN CORPUSCULAR HEMOGLOBIN 31.6 pg (27.0-31.0); MEAN CORPUSCULAR HGB CONC 33.3 (31.8-35.4); MEAN CORPUSCULAR VOLUME 94.9 fl (81.0-99.0); MONOCYTES # (AUTO) 0.4 K/uL (0.4-2.0); MONOCYTES % (AUTO) 5.6 (0-10); NEUTROPHILS # (AUTO) 3.8 K/ul (2.0-6.9); NEUTROPHILS % (AUTO) 50.3 % (42.2-75.2); PLATELET COUNT 280 10^3/uL (140-440); RDW COEFFICIENT OF VARIATION 13.1 % (11.6-14.8); WHITE BLOOD COUNT 7.49 K/ul (4.6-10.2)
[2024-11-20 05:57] LABS: ALANINE AMINOTRANSFERASE 58.8 U/L (0-35); ALBUMIN 3.64 g/dL (3.5-5.0); ALKALINE PHOSPHATASE 103.4 U/L (38-126); ASPARTATE AMINO TRANSFERASE 85.7 U/L (14-36); BILIRUBIN,TOTAL 0.45 mg/dL (0.2-1.3); BLOOD UREA NITROGEN 5.9 mg/dL (7-17); CALCIUM 9.11 mg/dL (8.4-10.2); CARBON DIOXIDE 27.6 mmol/L (22-30.0); CHLORIDE 106.6 mmol/L (98-107); CREATINE KINASE 1576.7 U/L (30-135); CREATININE 0.68 mg/dL (0.60-1.30); GLUCOSE 109.7 mg/dL (74-106); POTASSIUM 3.88 mmol/L (3.5-5.1); SODIUM 139.6 mmol/L (134.5-145); TOTAL PROTEIN 6.6 g/dL (6.3-8.2)
[2024-11-20 06:12] LABS: CREATINE KINASE MB 3.21 ng/ml (0.0-2.38)
[2024-11-20] MEDS ORDERED: TOPROL XL ONE (08:22)
[2024-11-20 10:35] VITALS: BP 165/91; PULSE 80; TEMP 97.4
--- NOTE | 2024-11-20 11:23 | DCSUM ---
Admission Date Admission Date: 11/18/24 Discharge Date Discharge Date: 11/20/24 Admission Diagnosis Admission Diagnosis: 1. Acute Rhabdo, mild Discharge Diagnosis Discharge Diagnosis: 1. Acute Rhabdo, mild - resolving 2. Paresthesias of lower abd and extremities 3. Dog bite 4. Hypertension 5. Lumbar spinal stenosis Hospital Provider Hospital Provider: AZUL RUIZ PA-C, [facility] Summary of History and Physical Summary of History and Physical: Patient is a 59-year-old female with past medical history of hypertension who presented to the ER with bites on her hands from breaking up a dog fight. She has a couple small puncture wounds and scratches otherwise nothing significant. However she was concerned due to having history of MRSA in the past that she wanted to be evaluated. She also discussed that she was having some numbness and weak weakness of her lower extremities and numbness in her anterior abdomen area. This has been progressing for the last month. She was evaluated in the ER recently and had a negative CT abdomen and pelvis and labs. In the ER this visit she had a CT of thoracic spine which was unremarkable and then of lumbar spine which is showing different levels of spinal stenosis. A CPK was checked due to her symptoms which was elevated. This was thought to be due to her spending about 15 to 20 minutes breaking up the dog fight. Her initial CPK was in the 800s and then increased to 1100s despite fluid resuscitation. She was admitted to [facility]. Today patient is continue to be on fluids and CPK still trending upwards. Patient denies any saddle anesthesia or urinary or bowel incontinence. Her complaint of numbness crosses multiple dermatomes. Hospital Course Subjective: Patient was treated with fluids. On 11/19 CPK trended up to 2200. Remained on fluids. Today CPK has trended down to 1500. She is feeling better. Lytes are normal. Renal function is good. Discussed continuing to push fluids. Regarding her complaint of back pain, numbness, and weakness. CT of lumbar spine did show levels of spinal stenosis and foraminal narrowing. Discussed it could be contributing and follow up outpatient for further testing and possible referral to neurosurgery or ortho may be warranted. No red flags on exam. No saddle anesthesia or urinary/bowel incontinence. She is ambulatory. Patient agrees to plan of care. Amlodipine added due to hypertension. Augmentin prescribed for dog bites. Pt utd on her tdap. Appearance: Pleasant, No Apparent Distress and Alert HEENT: MMM CVS: No Murmur Abdomen: Soft, Non-Tender and No Distention Respiratory: No Accessory Muscle Use Extremities: No Edema Additional Findings: good equal strength of simeon upper and lower ext, no significant weakness noted. Pt is ambulatory. Vital Signs: Most Recent Vital Signs Temperature 97.4 F L 11/20/24 10:00 Temperature Source Temporal Artery Scan 11/20/24 10:00 Temperature Source Temporal Artery Scan 11/18/24 12:56 Pulse Rate 80 11/20/24 10:00 Respiratory Rate 16 11/20/24 10:00 Blood Pressure 165/91 H 11/20/24 10:00 Blood Pressure Mean 115 11/20/24 10:00 Blood Pressure Left Arm 154/98 11/18/24 22:37 Blood Pressure Location Right Arm 11/20/24 10:00 Blood Pressure Position Sitting 11/20/24 10:00 O2 Sat by Pulse Oximetry 98 11/20/24 10:00 Oxygen Delivery Method Room Air 11/20/24 11:00 Height 5 ft 6 in 11/18/24 22:37 Weight 106 kg 11/18/24 22:37 Imaging: EXAMINATION: CT THORACIC SPINE WITHOUT CONTRAST HISTORY: Back pain. TECHNIQUE: CT of the thoracic spine was performed according to standard protocol without intravenous contrast. Sagittal and coronal reformatted images were obtained using the data from the axial images. Contrast Dose: None. CT Dose Reduction Techniques Performed: Yes. COMPARISON: None. FINDINGS: Segmentation: 12 rib-bearing thoracic vertebral bodies. Alignment: Anatomic. Bones: No fracture. No lytic or blastic lesion. Disc Spaces: Normal heights. Soft Tissues: Within normal limits. Limited chest and abdomen: The visualized portions of the lungs are clear. The thoracic aorta is not dilated. The visualized portions of the adrenals and kidneys are normal. Degenerative changes: No significant facet arthropathy. There is mild degenerative disc disease in the mid thoracic spine with lateral osteophyte formation. No significant spinal canal stenosis. IMPRESSION: 1. No fracture or subluxation EXAMINATION: CT LUMBAR SPINE WITHOUT CONTRAST HISTORY: Lower extremity weakness. TECHNIQUE: Computed tomography (CT) of the lumbar spine was performed according to standard protocol without intravenous contrast. Contrast Dose: None. CT Dose Reduction Techniques Performed: Yes. COMPARISON: None. FINDINGS: There are 5 non-rib bearing lumbar type vertebrae, with partial sacralization of L5 on the left. The coronal images show mild scoliosis, convex to the left. Grxz-jx-gabiheam degenerative changes of both sacroiliac joints. The sagittal images show normal curvature. Mild retrolisthesis of T12 on L1. Vertebral body heights are normal. Moderate disc height loss with vacuum phenomena and mild degenerative endplate sclerosis at L4-5. Mild multilevel osteophytosis. Ndhe-pu-unpmyxcc multilevel bilateral facet arthropathy. No fractures or dislocations are identified. 2.2 cm cyst L1-2: Mild bilateral facet arthropathy. No spinal canal stenosis or neuroforaminal narrowing. L2-3: Mild bilateral facet arthropathy. No spinal canal stenosis or neuroforaminal narrowing. L3-4: Mild disc protrusion and mild bilateral facet arthropathy. Mild spinal canal stenosis. Mild right neuroforaminal narrowing. L4-5: Disc bulge with central disc protrusion and mild bilateral facet arthropathy. Moderate to severe spinal canal stenosis. Moderate bilateral neuroforaminal narrowing. L5-S1: Left posterolateral bony spurring, and bilateral facet arthropathy, moderate on the left and mild on the right. No spinal canal stenosis. Mild left neuroforaminal narrowing. IMPRESSION: 1. Mild scoliosis, convex to the left. 2. Mild retrolisthesis of T12 on L1. 3. Multilevel degenerative changes as described. 4. At L3-4, mild spinal canal stenosis and mild right neural foraminal narrowing. 5. At L4-5, ykcxoxet-jp-vvryej spinal canal stenosis, and moderate bilateral neural foraminal narrowing. 6. At L5-S1, mild left neuroforaminal narrowing. Lab Results Last 24 Hours: 11/20/24 11/19/24 05:28 13:52 WBC 7.49 RBC 3.70 L Hgb 11.7 L Hct 35.1 L MCV 94.9 MCH 31.6 H MCHC 33.3 RDW Coeff of Azeem 13.1 Plt Count 280 Immature Gran % (Auto) 0.1 Neut % (Auto) 50.3 Lymph % (Auto) 42.1 [place] % (Auto) 5.6 Eos % (Auto) 1.6 Baso % (Auto) 0.3 Neut # (Auto) 3.8 Lymph # (Auto) 3.2 [place] # (Auto) 0.4 Eos # (Auto) 0.1 Baso # (Auto) 0.0 Immature Gran # (Auto) 0.0 Sodium 139.6 Potassium 3.88 Chloride 106.6 Carbon Dioxide 27.6 Anion Gap 9.28 BUN 5.9 L Creatinine 0.68 Estimated GFR (MDRD) 108.00 BUN/Creatinine Ratio 8.67 Glucose 109.7 H Calcium 9.11 Total Bilirubin 0.45 AST 85.7 H D ALT 58.8 H D Alkaline Phosphatase 103.4 Total Creatine Kinase 1576.7 H 2223.8 H CK-MB (CK-2) 3.210 H 3.240 H CK-MB (CK-2) % 0.2000 0.1400 Total Protein 6.60 Albumin 3.64 Globulin 2.96 Albumin/Globulin Ratio 1.22 Discharge Instructions Discharge Planning: Discharge Planning > [address] Ellen Restrepo. Discharge Medications: Medications at Discharge (Home Meds & RX) metoprolol succinate 50 mg capsule sprinkle, ext. release 24 hr 50 mg PO DAILY 11/05/24 soy isoflavone-black cohosh root-magnolia bark 155 mg capsule (Estroven) 1 cap PO DAILY 11/05/24 amlodipine 5 mg tablet 5 mg PO DAILY #30 tabs 11/20/24 amoxicillin 875 mg-potassium clavulanate 125 mg tablet 1 tab PO 2XD 5 days #10 tabs 11/20/24 Discharge Plan Discharge Discharge Orders: Discharge Patient (ONCE); Ordered 11/20/24 Ordered By: AZUL RUIZ Activity Restrictions/Additional Instructions: DISCHARGE TO HOME DX: RHABDO, MILD, DOG BITE TAKE ANTIBIOTIC NEW BLOOD PRESSURE MEDICINE ADDED LOG BLOOD PRESSURES AT HOME AND TAKE TO PCP PUSH FLUIDS NO STRENUOUS ACTIVITIES UNTIL RELEASED BY PCP IF ANY DISTRESS OR UNCONTROLLED PAIN, PRESENT TO LOCAL EMERGENCY ROOM. Instructions: Animal Bite (DC), Rhabdomyolysis (DC) Patient Disposition: HOME SELF-CARE Prescriptions: New amlodipine 5 mg Tablet 5 mg PO DAILY Qty: 30 0RF amoxicillin-pot clavulanate 875-125 mg Tablet 1 tab PO 2XD 5 Days Qty: 10 0RF Continued metoprolol succinate 50 mg capsule,sprinkle,ER 24hr 50 mg PO DAILY Estroven 155 mg capsule 1 cap PO DAILY Did you review [place] AUDOGRAPH OPERATOR for ALL controlled substances?: Not Applicable Discussed opioids are addictive and Narcan is available by prescription or from pharmacy.: No Condition: Fair Referrals: BERNADETTE SYLVESTER DNP,SOURCING MANAGER [REFERRING] - 11/22/24 10:30 am
== END 2024-11-20 12:30 | disposition home or self-care (01) ==
LOC: ED 12:45 → MEDSURG B 12:45
PROVIDERS: ADMIT Hospitalist; ATTEND Physician Assistant
DX: M48.061 Spinal stenosis, lumbar region without neurogenic claudication; R74.8 Abnormal levels of other serum enzymes; M62.81 Muscle weakness (generalized); F17.210 Nicotine dependence, cigarettes, uncomplicated; S61.452A Open bite of left hand, initial encounter; M62.82 Rhabdomyolysis; I10 Essential (primary) hypertension; W54.0XXA Bitten by dog, initial encounter; R20.2 Paresthesia of skin; Z20.822 Contact with and (suspected) exposure to COVID-19